=== PATIENT | female | born 1970 | race Caucasian/White ===

== ENCOUNTER 2017-02-07 14:00 | Emergency (ER) | payer MEDICAID ==
[~2017-02-07] VITALS: Ht 157.5 cm; Wt 81.6 kg
[2017-02-07] MEDS ORDERED: CARISOPRODOL 350 MG TABLET PO (14:20)
[2017-02-07] MEDS ORDERED: MELOXICAM 15 MG TABLET (14:20)
[2017-02-07] MEDS ORDERED: BANOPHEN 25 MG PO (14:20)
[2017-02-07] MEDS ORDERED: FLUCONAZOLE 200 MG TABLET PO (14:20)
[2017-02-07] MEDS ORDERED: SULFAMETHOXAZOLE-TMP DS TABLET PO (14:20)
[2017-02-07] MEDS ORDERED: DOCUSATE SODIUM 100 MG (14:20)
[2017-02-07] MEDS ORDERED: LAMOTRIGINE 100 MG TABLET (14:20)
[2017-02-07] MEDS ORDERED: DIPHENHYDRAMINE 25 MG CAPSULE PO (14:20)
[2017-02-07] MEDS ORDERED: FLUOXETINE HCL 20 MG CAPSULE PO (14:20)
[2017-02-07] MEDS ORDERED: LORAZEPAM 1 MG TABLET (14:20)
[2017-02-07] MEDS ORDERED: VENTOLIN HFA 90 MCG INHALER INH (14:20)
[2017-02-07 14:40] LABS: *BILIRUBIN,URIN NEGATIVE (NEGATIVE); *BLOOD, URINE NEGATIVE (NEGATIVE); *COLOR,URINE LIGHT YELLOW (YELLOW); *KETONES,URINE NEGATIVE (NEGATIVE); *PROTEIN,URINE NEGATIVE (NEGATIVE); *UROBILINOGEN,URINE 0.2 E.U./dl (NORMAL); LEUKOCYTE ESTERASE ,URINE TRACE (NEGATIVE); NITRITE, URINE NEGATIVE (NEGATIVE); PH,URINE 7.5 (5.0-8.0); UGLUCOSE NEGATIVE (NEGATIVE)
[2017-02-07 14:41] LABS: *CLARITY,URINE HAZY (CLEAR)
[2017-02-07 14:49] LABS: BACTERIA,URINE MODERATE /HPF (NONE SEEN); RBC,URINE 0-3 /HPF (0-3); SQUAMOUS EPITHELIAL CELL,UR MANY /HPF (NONE SEEN)
--- NOTE | 2017-02-07 14:55 | NUR ---
seen by dr Armstrong
[2017-02-07 15:21] LABS: BASOPHILS # (AUTO) 0.1 K/uL (0.0-8.0); BASOPHILS % (AUTO) 0.5 % (0.0-2.0); EOSINOPHILS # (AUTO) 0.1 K/uL (0.0-0.7); EOSINOPHILS % (AUTO) 0.9 % (0.0-7.0); HEMATOCRIT 37.4 % (37-47); HEMOGLOBIN 12.4 G/DL (12.0-16.0); LYMPHOCYTES # (AUTO) 3.7 K/UL (0.8-4.8); LYMPHOCYTES % (AUTO) 30.6 % (20.5-51.5); MEAN CORPUSCULAR HEMOGLOBIN 27.5 UUG (27.0-31.0); MEAN CORPUSCULAR HGB CONC 33 g/dL (32.0-37.0); MEAN CORPUSCULAR VOLUME 83.3 FL (81.0-99.0); MONOCYTES % (AUTO) 8.3 % (0.0-11.0); NEUTROPHILS # (AUTO) 7.1 K/UL (1.8-8.9); NEUTROPHILS % (AUTO) 59.7 % (38.5-71.5); PLATELET COUNT (AUTO) 290 K/UL (150-450); RED BLOOD CELL COUNT(AUTO) 4.49 MIL/UL (4.2-5.4)
--- NOTE | 2017-02-07 15:26 | NUR ---
refused toradol, caims allergy
[2017-02-07 15:27] LABS: CREATININE 0.7 mg/dL (0.6-1.3); POTASSIUM 3.9 mmol/L (3.5-5.1)
[2017-02-07 15:33] LABS: BILIRUBIN,DIRECT 0.1 mg/dL (0.0-0.2); BILIRUBIN,TOTAL 0.3 mg/dL (0.2-1.0); TOTAL PROTEIN, SERUM 8.2 g/dL (6.4-8.2)
--- NOTE | 2017-02-07 17:02 | NUR ---
PT REQUESTED TO HAVE SALIE LOCK D/C'D FRO LEFT FOREARM, PT REC'D NORCO PO. PT STEFANI=W IN ROUTE TO CT/XRAY.
--- NOTE | 2017-02-07 18:47 | NUR ---
IV removed. Catheter intact and site benign. Pressure and 4x4 gauze applied to site. No bleeding noted.
--- NOTE | 2017-02-07 18:48 | NUR ---
Patient discharged to home in stable conditon. Written and verbal after care instructions given. Patient verbalizes understanding of instructions.
== END 2017-02-07 18:53 | disposition home or self-care (01) ==
LOC: ER 14:00
DX: R10.31 Right lower quadrant pain (principal); M25.551 Pain in right hip; M25.561 Pain in right knee; J45.909 Unspecified asthma, uncomplicated; K21.9 Gastro-esophageal reflux disease without esophagitis; Z90.49 Acquired absence of other specified parts of digestive tract; Z90.710 Acquired absence of both cervix and uterus
CPT/HCPCS: 36415; 73502; 73564; 74176; 80048; 80076; 81001; 83690; 85025; 96374; 99285; A4663; C9113; J1885